=== PATIENT | male | born 1950 | race Caucasian/White ===

== ENCOUNTER → 2017-02-11 | Outpatient (CLI) | payer MEDICARE, OTHER ==
[~2017-02-11] MED LIST: AMITIZA24 MCG PO; CELEXA10 MG PO; DEPAKOTE500 MG PO; HYDROXYZINE HCL25 MG PO; LIORESAL TAB 1010 MG PO; LIPITOR20 MG PO; MIRALAX17 GM PO; NEURONTIN 300300 MG PO; PROTONIX40 MG PO; REMERON15 M1 PO; TOPROL XL 25 MG25 MG PO
== END ==
LOC: CT 09-06 13:00
DX: R41.81 Age-related cognitive decline (principal); G31.9 Degenerative disease of nervous system, unspecified
CPT/HCPCS: 70450